=== PATIENT | male | born 1985 | race Caucasian/White ===

== ENCOUNTER 2017-04-22 17:14 | Emergency (ER) | payer MEDICAID ==
[~2017-04-22] VITALS: Ht 180.3 cm; Wt 74.8 kg
[2017-04-22 17:21] VITALS: BP_SYST 132
[2017-04-22 20:34] VITALS: BP_SYST 132
== END 2017-04-22 20:34 | disposition home or self-care (01) ==
LOC: SED 17:14
DX: J40 Bronchitis, not specified as acute or chronic (principal); J06.9 Acute upper respiratory infection, unspecified
CPT/HCPCS: 99283